=== PATIENT | male | born 1925 | race Caucasian/White ===

== ENCOUNTER 2017-04-18 07:30 | Outpatient (CLI) | payer MEDICARE, OTHER ==
[~2017-04-18] VITALS: Ht 180.3 cm; Wt 75.0 kg
--- NOTE | ~2017-04-18 | OP ---
PATIENT NAME: FORREST DELUNA MEDICAL RECORD: [id number] :[birth year] LOCATION:D[facility] ADMISSION DATE: SURGEON: SADIE CONTRERAS MD DATE OF OPERATION: 04/18/2017 PREOPERATIVE DIAGNOSES: 1. End-of-life pacemaker generator. 2. Atrial fibrillation. 3. Hypertension. 4. Asthma. POSTOPERATIVE DIAGNOSES: 1. End-of-life pacemaker generator. 2. Atrial fibrillation. 3. Hypertension. 4. Asthma. PROCEDURE: Left subclavian pacemaker generator exchange. SURGEON: Sadie Contreras MD REPORT OF PROCEDURE: The patient's left chest was prepped and draped in sterile fashion. A total of 20 mL of 1% lidocaine with epinephrine was infused into the surrounding tissues. A skin incision was made overlying the indwelling pacemaker and an electrocautery was used to dissect through the subcutaneous tissues. The pacemaker was eviscerated through the wound, it was disconnected from the 2 leads. The leads were checked and noted to be functioning appropriately. The new pacemaker was affixed to the leads and placed in the subcutaneous pouch. This was sutured into place with an 0 Ti-Cron. The subcutaneous tissues were then irrigated out and reapproximated with interrupted 3-0 Vicryls and the skin was closed with running subcutaneous 5-0 Monocryl. COMPLICATIONS: None. CONDITION: Stable. ANESTHESIA: Local MAC. BLOOD LOSS: Minimal. TRANSINT:[id number] Voice Confirmation ID: [id number] DOCUMENT ID: [id number] SADIE CONTRERAS MD CC: [id number] DICTATION DATE: 04/18/17 1041 ACID CHANGER: 04/18/17 1110 [facility] [address] [id number]
--- NOTE | ~2017-04-18 | HEMODYNAMI ---
PATIENT:FORREST DELUNA MEDICAL RECORD: [id number] : [birth year] LOCATION:[facility] ADMISSION DATE: 04/18/17 Generatedon:04/18/201710:36 Patient name: FORREST DELUNA Patient #: [id number] SSN: : 1925 Date of study: 04/18/2017 Page: Of Hemodynamic Procedure Report Patient Data Patient Demographics Procedure consent was obtained First Name: FORREST Gender: Male Last Name: REGI : 1925 [facility] Initial: FELIPE Age: 89 year(s) Patient #: [id number] Race: Unknown Additional ID: [id number] Contact details Address: [address] [place] [address] State: [place] City: [place] Zip code: [facility] Past Medical History Allergies Allergen Reaction Date Comments Reported Penicillins 04/18/2017 Admission Admission Data Admission Date: 04/18/2017 Admission Time: 7:30 Height (in.): 5.11 BSA: 0.29 (m2) Height (cm.): 12.98 BMI: 4684.96 (kg/m2) Weight (lbs.): 174 Weight (kg.): 78.93 Lab Results Lab Result Date: 04/18/2017 Lab Result Time: 0:00 Biochemistry Name Units Result Min Max BUN mg/dl 24 --(----)-* 7 18 Creatinine mg/dl 1.1 --(--*-)-- 0.6 1.3 CBC Name Units Result Min Max Hemoglobin g/dl 12.2 *-(----)-- 13.5 17.5 Procedure Procedure Types Cath Procedure Diagnostic Procedure PPM/ICD Permanent Pacer Generator Exg. Miscellaneous Procedures Moderate Sedation up to 15 minutes Procedure Description Procedure Date Procedure Date: 04/18/2017 Procedure Start Time: 10:11 Procedure End Time: 10:35 Procedure Staff Name Function Josue Johnson MD Assisting physician Emily Amos RT Monitor Sugey Sampson RT Scrub Sofía Roberts RN Nurse Mark Plascencia RN Nurse Procedure Data Cath Procedure Estimated blood loss: 10 ml Procedure Complications No complications Procedure Medications Medication Administration Route Dosage 0.9% NaCl I.V. Oxygen NC 2 l/min Lidocaine 1% added to field 20 Vancomycin Topical 1 g Irrigation Vancomycin I.V.P.B 1 g Fentanyl I.V. 50 mcg Versed I.V. 1 mg Fentanyl I.V. 50 mcg Versed I.V. 1 mg Hemodynamics Rest BSA: 0.29 (m2) HGB: 12.2 (g/dl) O2 Consumption: Estimated: 32.23 (ml/min) O2 Con sumption indexed: Estimated:111.14 (ml/min/m) Heart Rate: 65 (bpm) Snapshots Pre Cath Intra NCS Post Cath Vital Signs Time Heart Resp SPO2 etCO2 NIBP (mmHg) Rhythm Pain Sedation Rate (ipm) (%) (mmHg) Status Level (bpm) 9:52:23 64 16 97 32.6 153/72(121) NSR 0 (11) 10(A) , No pain 9:56:43 78 16 99 40.9 127/70(109) NSR 0 (11) 10(A) , No pain 10:01:01 65 18 96 13.6 116/57(94) NSR 0 (11) 10(A) , No pain 10:05:17 65 17 98 3.7 104/58(83) NSR 0 (11) 10(A) , No pain 10:09:31 64 17 99 31.8 104/58(81) NSR 0 (11) 10(A) , No pain 10:13:45 64 16 98 30.3 115/62(93) NSR 0 (11) 9(A) , No pain 10:18:01 82 16 96 31.8 91/63(80) NSR 0 (11) 9(A) , No pain 10:22:11 59 16 95 38.6 110/58(90) NSR 0 (11) 9(A) , No pain 10:26:29 60 16 95 37.9 106/56(88) NSR 0 (11) 9(A) , No pain 10:30:41 65 16 96 37.1 116/68(96) NSR 0 (11) 10(A) , No pain 10:34:57 84 14 98 36.3 117/66(98) NSR 0 (11) 10(A) , No pain Medications Time Medication Route Dose Verified Delivered Reason Notes Effe ctiveness by by 9:32:01 0.9% NaCl I.V. kvoml/hr Josue Gore used for Alex Roberts RN procedure 9:32:09 Oxygen NC 2 l/min Josue Gore Per Alex Roberts RN physician 9:32:18 Lidocaine added 20ml Josue slater local 1% to vial Alex Johnson MD anesthetic field 9:33:30 Vancomycin Topical 1 g Josue Salas Per Irrigation Alex Johnson MD protocol 9:33:44 Vancomycin I.V.P.B 1 g Josue Gore Per Alex Roberts RN protocol 10:09:33 Fentanyl I.V. 50 mcg Josue Gore for Alex Roberts RN sedation 10:09:42 Versed I.V. 1 mg Josue Gore for Alex Roberts RN sedation 10:15:12 Fentanyl I.V. 50 mcg Josue Gore for Alex Roberts RN sedation 10:15:18 Versed I.V. 1 mg Josue Gore for Alex Roberts RN sedation Procedure Log Time Note 9:30:25 Patient Height : 5.11 inches 9:30:29 Patient Weight : 174 lbs 9:31:00 Mark Plascencia RN sent for patient. Start room use. 9:31:01 Time tracking: Regular hours 9:31:05 Plan of Care:Hemodynamics will remain stable., Cardiac rhythm will remain stable., Comfort level will be maintained., Respiratory function will remain adequate., Patient/ family verbilizes understanding of procedure., Procedure tolerated without complication., Recovers from procedure without complications.. 9:31:08 Signed procedure consent form obtained from patient. 9:31:26 Patient allergic to Penicillins 9:32:01 0.9% NaCl kvoml/hr I.V. was administered by Sofía Roberts RN; used for procedure; 9:32:09 Oxygen 2 l/min NC was administered by Sofía Roberts RN; Per physician; 9:32:18 Lidocaine 1% 20ml vial added to field was administered by Josue Johnson MD; for local anesthetic; 9:33:17 Vinted Adapta PPM Dual Generator [id number] opened to sterile field. 9:33:30 Vancomycin Irrigation 1 g Topical was administered by Josue Johnson MD; Per protocol; 9:33:44 Vancomycin 1 g I.V.P.B was administered by Sofía Roberts RN; Per protocol; 9:39:17 Lab Result : BUN 24 mg/dl 9:39:17 Lab Result : Creatinine 1.1 mg/dl 9:39:17 Lab Result : Hemoglobin 12.2 g/dl 9:39:54 Patient received from Pre/Post Procedure Room to CCL 3 Alert and oriented. Tansferred to table in Supine position. 9:39:55 Warm blankets applied, and davonte hugger turned on for patient comfort. 9:39:56 Correct patient and procedure confirmed by team. 9:39:57 ECG and BP/O2 sat monitors applied to patient. 9:51:02 Vital chart was started 9:51:03 Baseline sample Acquired. 9:51:06 Rhythm: paced 9:51:07 Full Disclosure recording started 9:51:14 H&P Date Dictated: 04/15/2017 Within 30 days and on chart., H&P Addendum completed by physician on day of procedure. (MUST COMPLETE FOR ALL OUTPATIENTS). 9:51:15 Pre-procedure instructions explained to patient. 9:51:15 Pre-op teaching completed and patient verbalized understanding. 9:51:16 Family in patients room. 9:51:17 Patient NPO since Midnight. 9:51:19 Is the patient allergic to Iodine/contrast media? No. 9:51:23 Is patient on blood thinner?Yes 9:51:25 ACC The patient was administered the following blood thiners within the last 24 hours: Xarelto 9:51:37 pt held xarelto since 2.20 9:51:50 Patient diabetic? No. 9:51:54 Previous problem with sedation/anesthesia? No ? 9:51:55 Snore? No 9:51:56 Sleep apnea? No 9:51:58 Deviated septum? No 9:51:58 Opens mouth fully? Yes 9:51:59 Sticks out tongue? Yes 9:52:06 Airway obstruction? Yes COPD, ASTHMA 9:52:08 Dentures? No ? 9:52:47 IV patent on arrival in left antecubital with 0.9% NaCl at [facility]. 9:52:52 Lab results completed and on chart. 9:52:59 Left chest area was prepped with chlora-prep and draped in sterile fashion 9:53:01 Alarms reviewed by R. N. 9:53:01 Sharps counted by scrub and verified by R.N. 9:58:42 Physician paged 10:08:51 --------ALL STOP TIME OUT------ 10:08:51 Final Timeout: patient, procedure, and site verified with staff and physician. All members of the team are in agreement. 10:08:54 Left chest site verified by team. 10:09:07 Physical assessment completed. ASA score P 2 - A patient with mild systemic disease as per Josue Johnson MD. 10:09:10 Sedation plan: IV Moderate Sedation Medication:Versed, Fentanyl 10:09:33 Fentanyl 50 mcg I.V. was administered by Sofía Roberts RN; for sedation; 10:09:42 Versed 1 mg I.V. was administered by Sofía Roberts RN; for sedation; 10:10:14 Pre sharps counted by scrub and verified by RN: Sutures: 7; Sponges: 5; Stick needles: 2; Skin needles: 2; Blade: 1; Cautery: 1 10:10:17 Grounding pad site Left thigh. 10:10:19 Grounding pad site free from injury. 10:10:32 [employer] technical account representative DEEDEE HOFFMAN present for procedure. 10:11:25 Procedure started. 10:11:49 Lidocaine 1% w/epi and Bupivacaine 0.5% was administered to left subclavicular area by Josue Johnson MD . 10:13:49 Incision made to left subclavicular area. 10:15:12 Fentanyl 50 mcg I.V. was administered by Sofía Roberts RN; for sedation; 10:15:18 Versed 1 mg I.V. was administered by Sofía Roberts RN; for sedation; 10:16:11 Generator pocket made/opened. 10:17:26 Ventricular lead tested. 10:17:35 Atrial lead tested. 10:18:11 Atrial lead attachment was completed with 2-0 ticron. 10:18:14 Ventricular lead attachment was completed with 2-0 ticron. 10:20:24 Subcutaneous closure was completed with 3-0 vicryl. 10:21:35 Parameters-- Generator: Mode: AAIR/DDDR. Lower Rate: 60bpm. Upper Rate: 120bpm. 10:22:09 Parameters--Ventricular P/R Wave: 14.1mV. Current: 1.0mA; Threshold: 3.3V; Impedence: 565OHMS. 10:22:39 Parameters--Atrial P/R Wave: 0.8mV. Current: 0mA; Threshold: .1V; Impedence: 344OHMS. 10:24:46 Skin closure was completed with 5-0 monocryl. 10:27:45 LT CHEST INCISION WAS DRESSED WITH GUAZE AND PRESSURE DRESSING 10:28:04 Procedure ended.(Physican Out) 10:29:42 Post sharps counted by scrub and verified by RN: Sutures: 7; Sponges: 5; Stick needles: 2; Skin needles: 2; Blade: 1; Cautery: 1 10:30:18 Post-procedure physical assessment completed. ASA score P 2 - A patient with mild systemic disease as per Josue Johnson MD. 10:30:27 Post procedure rhythm: paced, atrial flutter 10:30:30 Estimated blood loss: 10 ml 10:30:31 Post procedure instruction explained to patient.Patient verbalizes understanding. 10:30:32 Patient needs reinforcement of post procedure teaching. 10:34:52 Procedure type changed to Cath procedure, Diagnostic procedure, PPM/ICD, Permanent Pacer Generator Exg., Miscellaneous Procedures, Moderate Sedation up to 15 minutes 10:35:25 Procedure and supply charges have been captured, reviewed, submitted and are correct. 10:35:27 Procedure Complication : No complications 10:35:28 Vital chart was stopped 10:35:29 See physician's report for complete and final results. 10:35:31 Report given to Pre/Post Procedure Room. 10:35:34 Patient transfered to Pre/Post Procedure Room with Bed. 10:35:35 Procedure ended. 10:35:35 Full Disclosure recording stopped 10:35:43 End room use (Document Last) Device Usage Item Name Manufacture Quantity Catalog Hospital Part Current Minimal Lot# / Number Charge Number Stock Stock Serial# Code Medtronic Medtronic 1 [id number] 10.30.27 Adapta [id number] PPM Dual Generator [id number] Signature Audit [place] Stage Time Signature Unsigned Intra-Procedure 04/18/2017 Emily Amos 10:35:55 AM RT(R) Signatures Monitor : Emily Amos Signature : RT Date : Time : [place] [id number] [place] [address]
[~2017-04-18 07:30] MED LIST: ADVAIR 250/501 DISK INH; BETAPACE 120 M120 MG PO; CARDURA2 MG PO; CLARITIN 10 MG10 MG PO; DYAZIDE 37.5/251 CAP PO; FISH OIL 1,0001 CA1 PO; FLUTICASONE PRO16 GM NS; LASIX20 MG PO; LESCOL XL80 MG; NEXIUM40 MG; PLAVIX75 MG PO; PROSCAR5 MG PO; PROVENTIL HFA6.7 GM INH; SINEMET 25-1001 EACH PO; SINGULAIR10 MG PO; SPIRIVA18 MCG INH; VITAMIN B-121000 MCG PO; VITAMIN D31000 UNIT PO; ZYLOPRIM300 MG PO
[2017-04-18 08:40] VITALS: BP 139/66; Ht 180.3 cm; Wt 75.0 kg
[2017-04-18] MEDS ORDERED: TOBRADEX EYE DRO5 ML EACH EYE (08:44)
[2017-04-18] MEDS ORDERED: OMEPRAZOLE40 MG PO (08:45)
[2017-04-18] MEDS ORDERED: K-DUR20 MEQ PO (08:45)
[2017-04-18] MEDS ORDERED: COREG 3.1253.125 MG PO (08:46)
[2017-04-18] MEDS ORDERED: LISINOPRIL2.5 MG PO (08:46)
[2017-04-18] MEDS ORDERED: DIPROLENE 0.05%50 GM TOPICAL (08:47)
[2017-04-18] MEDS ORDERED: XARELTO15 MG PO (08:47)
[2017-04-18 08:48] LABS: HEMATOCRIT 36.8 % (42.0-54.0); HEMOGLOBIN 12.2 g/dL (13.5-17.5); MCH 34.4 pg (26.0-34.0); MCHC 33.2 g/dL (31.0-37.0); MCV 103.7 fL (80.0-100.0); MEAN PLATELET VOLUME 10.5 fL (7.4-10.4); RBC 3.55 10x6/uL (4.20-6.10); RDW 14.1 % (11.5-14.5); WBC 6.6 10x3/uL (4.8-10.8)
[2017-04-18] MEDS ORDERED: LIPITOR40 MG PO (08:53)
[2017-04-18] MEDS ORDERED: MOBIC7.5 MG PO (08:56)
[2017-04-18] MEDS ORDERED: BUMEX 1 MG TAB1 MG PO (08:57)
[2017-04-18 09:05] LABS: CALCIUM 8.7 mg/dL (8.5-10.1); CARBON DIOXIDE 28.2 mmol/L (21.0-32.0); CREATININE - SERUM 1.1 mg/dL (0.6-1.3); POTASSIUM - SERUM 4.2 mmol/L (3.5-5.1)
[2017-04-18 09:08] LABS: APTT 30.6 SECONDS (22.8-39.4)
[2017-04-18 09:09] LABS: INR 1.07 (0.85-1.17); PROTIME 13.5 SECONDS (11.6-15.0)
== END 2017-04-18 12:35 | disposition home or self-care (01) ==
LOC: D.CATH 07:30
PROVIDERS: Internal Medicine Interventional Cardiology
DX: I49.5 Sick sinus syndrome (principal); Z45.010 Encounter for checking and testing of cardiac pacemaker pulse generator [battery]; I48.91 Unspecified atrial fibrillation; I10 Essential (primary) hypertension; J44.9 Chronic obstructive pulmonary disease, unspecified; E78.5 Hyperlipidemia, unspecified; I42.0 Dilated cardiomyopathy; Z01.812 Encounter for preprocedural laboratory examination